=== PATIENT | female | born 1985 | race Caucasian/White ===

== ENCOUNTER 2016-09-06 21:59 | Emergency (ER) | payer SELFPAY ==
--- NOTE | 2016-09-07 04:53 | ER ---
ADMIT: 09/06/2016 RM/LOC: ER [facility] MR#: [id number] [address] [id number] LONNIE NERI [address] [place] [address] Emergency Room Report SEX: F AGE: 30 : 1985 DATE: 09/06/2016 The patient is a 30-year-old female, who admits to biting her nails since she was a little girl. Complains of swelling right thumb and long finger. Denies any fevers or other trauma. Exam remarkable for nontoxic, afebrile, acutely uncomfortable female with paronychia of thumb and long finger. No evidence of felon. Right thumb was drained through nail plate with purulent material expressed. Right long finger drained with 18-gauge needle, right cuticle with purulent material expressed. Bacitracin, Band-Aids, Bactrim double- strength 2 p.o. in department and 2 p.o. b.i.d. x7 days. Keflex 1 g p.o. in department, 500 mg q.i.d., #40; hydrocodone 5/325 one to two q.i.d. p.r.n. #20 plus 6 from Pyxis. Advised no more biting nails. Good hygiene. Bactroban ointment t.i.d. x10 days, dispensed [address] Choi as needed. Jorge Wallace MD/ maria luz JOB #: [id number] CC: Jorge Wallace MD, Attending Physician Jody Choi MD, Family Physician Jody Choi MD
== END 2016-09-06 23:47 | disposition home or self-care (01) ==
LOC: ER 21:59
PROC: 0H9FXZZ Drainage of Right Hand Skin, External Approach (ICD-10-PCS; principal; 2016-09-06)
DX: L03.011 Cellulitis of right finger (principal); F17.210 Nicotine dependence, cigarettes, uncomplicated